=== PATIENT | male | born 1945 | race Caucasian/White ===

== ENCOUNTER 2023-03-10 09:54 | Outpatient (CLI) | payer MEDICARE | END 2023-03-10 09:55 | disposition home or self-care (01) | LOC: CSHRAD 09:54 | PROVIDERS: ATTEND Nurse Practitioner | DX: I25.10 Atherosclerotic heart disease of native coronary artery without angina pectoris (principal); R06.02 Shortness of breath; I48.0 Paroxysmal atrial fibrillation | CPT/HCPCS: 36415; 71046; 80053; 83735; 85025; 85610 ==